=== PATIENT | female | born 1995 | race Asian ===

== ENCOUNTER 2023-05-01 22:50 | Observation (INO) ==
[2023-05-01] MEDS ORDERED: SODIUM CHLORIDE 0.9% 1000ML 1,000 ML IV SCH (23:45)
[2023-05-02 00:17] LABS: Basophils # (auto) 0.02 K/uL (0-0.2); Basophils % (auto) 0.2 %; Eosinophils # (auto) 0.24 K/uL (0-0.50); Eosinophils % (auto) 2.4 %; Hematocrit (blood only) 43.4 % (37.0-47.0); Hemoglobin 15.2 g/dl (12.0-16.0); Immature Granulocytes # (auto) 0.03 K/uL (0.01-0.20); Immature Granulocytes % (auto) 0.3 %; Lymphocytes # (auto) 2.87 K/uL (1.2-3.4); Lymphocytes % (auto) 28.3 %; Mean Corpuscular Hemoglobin 29.7 pg (25.0-34.0); Mean Corpuscular Volume 84.9 fL (80.0-100.0); Mean Platelet Volume 11.3 fL (9.4-12.4); Monocytes # (auto) 0.47 K/uL (0.11-0.59); Monocytes % (auto) 4.6 %; Neutrophils # (auto) 6.52 K/uL (1.40-6.50); Neutrophils % (auto) 64.2 %; Platelet Count 235 K/uL (130-400); RDW Coefficient of Variation 11.9 % (11.5-14.5); RDW Standard Deviation 35.8 fL (36.4-46.3); Red Blood Count 5.11 M/uL (4.20-5.40); White Blood Count 10.15 K/ul (4.8-10.8)
[2023-05-02 00:24] LABS: Salicylate 24.1 mg/dl (3.0-30)
[2023-05-02 00:26] LABS: Alanine Aminotransferase 11 U/L (7-52); Albumin Globulin Ratio 1.9 (0.9-2); Albumin Level 4.7 gm/dl (3.4-5.0); Alkaline Phosphatase 58 U/L (34-104); Anion Gap 12 (3-11); Aspartate Aminotransferase 20 U/L (13-39); BUN Creatinine Ratio 22.2 (10-20); Bilirubin,Total 0.2 mg/dl (0.2-1.0); Blood Urea Nitrogen 16 mg/dl (6-23); Calcium 9.1 mg/dl (8.6-10.3); Carbon Dioxide 24 mmol/L (21-32); Chloride 104 mmol/L (98-107); Est GFR (Non-African American) 115.6 ml/min; Globulin 2.5 gm/dl (2.5-4.0); Glucose 104 mg/dl (70-99(Fasting)); Magnesium 1.9 mg/dl (1.7-2.4); Potassium 3.2 mmol/L (3.5-5.1); Pregnancy Test, Serum Negative (Negative); Sodium 140 mmol/L (136-145); Total Protein 7.2 gm/dl (6.0-8.3)
[2023-05-02 00:38] LABS: INR 0.9 (0.9-1.1); Prothrombin Time 10.4 Seconds (9.0-12.0)
[2023-05-02] MEDS ORDERED: ONDANSETRON INJ 2 MG/ML 2 ML VIAL ONE (01:10)
[2023-05-02] MEDS ORDERED: ONDANSETRON INJ 2 MG/ML 2 ML VIAL IV STA ×3 (01:34→05:50)
--- NOTE | 2023-05-02 01:38 | Emergency Department Note ---
Impression & Plan Intentional acetaminophen overdose, Suicide attempt by drug ingestion, Mood disorder ED Provider Note NAME: TEMO ARRIOLA AGE: 27 SEX: F ARRIVES VIA: Walk-In INFORMANT: Patient ED PROVIDER(S): Darío Shook MD CHIEF COMPLAINT: Intentional Tylenol overdose PLAN: Disposition: Admit MEDICAL DECISION MAKING: The patient is a 27-year-old woman with a past medical history of PTSD/depression who presents to the emergency department via walk-in for evaluation of intentional Tylenol overdose where she reports taking 25 2050 mg tablets of Excedrin and then "a good number of extra strength Tylenol" which she later quantifies as 10 tablets. The patient reports that she took the overdose to "punish herself". He initially denies wanting to kill herself however she acknowledges that she is aware of the harm that the medications can cause. She reports feeling mild nausea but denies any vomiting, abdominal pain. She denies any recent illness including fevers, chills, cough, congestion or urinary symptoms. On my evaluation the patient is in no acute distress, afebrile with stable vital signs. Her abdomen is benign. She has no overt toxidrome. EKG without overt acute ischemia and unremarkable intervals. Chest x-ray and KUB negative for acute abnormalities per my primary review. WBC, H/H and platelets within normal limits. Chemistry without metabolic acidosis. Potassium 3.2 and electrolytes otherwise unremarkable. LFTs are unremarkable. INR is 0.9, within normal limits. UA without evidence of infection. The patient's initial acetaminophen level was 78 at 2 hours from her reported ingestion at 930. Case was discussed with the [facility] and recommend following 4-hour acetaminophen level and aspirin level. However, given the concern that the patient is not reliable in terms of whether she had a single ingestion at 930 versus over a period of time, agree with plan proceed with treatment with NAC while awaiting 4-hour level but will complete 21-hour regimen. [facility] for [facility] for medical clearance and subsequent referral for psychiatric treatment. Triage Nursing notes reviewed and agree them. Prior/outside medical records reviewed Vital Signs: reviewed Differential diagnosis: Mood disorder, infection, hypoglycemia, electrolyte abnormalities, cardiac sources, intracerebral event, toxicologic, trauma, neurologic, as well as other pathologies. ER treatment provided: See below. Diagnostics interpreted by me: ECG: Normal sinus rhythm, 84 bpm, no ectopy, no overt ST elevation or depression, QTc 451, QRS 74. Cardiac Monitoring: An order for continuous cardiac monitoring was placed and demonstrated Normal sinus rhythm, 84 bpm, no ectopy. Laboratory studies: See below Imaging studies: See below Consultation(s): PCC Case was discussed with Dr. Brown, [facility] hospitalist who will evaluate the patient for admission. HPI: The patient is a 27-year-old woman with a past medical history of PTSD/depression who presents to the emergency department via walk-in for evaluation of intentional Tylenol overdose where she reports taking 25 2050 mg tablets of Excedrin and then "a good number of extra strength Tylenol" which she later quantifies as 10 tablets. The patient reports that she took the overdose to "punish herself". He initially denies wanting to kill herself however she acknowledges that she is aware of the harm that the medications can cause. She reports feeling mild nausea but denies any vomiting, abdominal pain. She denies any recent illness including fevers, chills, cough, congestion or urinary symptoms. ROS: See above HPI for pertinent positives & negatives. A total of 10 systems reviewed and were otherwise negative. VITALS:See Below PHYSICAL EXAMINATION: GENERAL: Awake, alert, melancholy-appearing, in no distress HENT: Normocephalic, atraumatic. Oropharynx unremarkable. EYES: Normal conjunctiva. Sclera non-icteric. NECK: Supple. No nuchal rigidity. FROM. No JVD. RESPIRATORY: Clear to auscultation. CARDIAC: Regular rate, normal rhythm. Extremities warm and well perfused. Pulses equal. ABDOMEN: Soft, non-distended. No tenderness to palpation. No rebound or guarding. No masses. RECTAL: Deferred. MUSCULOSKELETAL: Chest examination reveals no tenderness. The back is symmetrical on inspection without obvious abnormality. There is no CVA tenderness to palpation. No joint edema. LOWER EXTREMITIES: Calves are equal size bilaterally and non-tender. No edema. No discoloration. NEURO: Normal sensorium. No sensory or motor deficits noted. DTRs wnl. No clonus. SKIN: No rash or jaundice noted. PSYCH: Melancholy appearing. Suicidal ideation. Depressed. ED COURSE: Critical Care: I have personally spent greater than 45 minutes of critical care time in the direct management of this patient. This includes bedside care, interpretation of diagnostic studies, and testing, discussion with consultants, patient, and family members, and other required patient management activities. This 45 minutes is in excess of all separately billable procedures. Darío Shook MD Past Med/Surg History Medical History Psychological disorder Unspecified hearing loss, unspecified ear Surgical History Stout teeth extracted Family History Unknown No problems noted. Social History Smoking Status: Never smoker Do You Dip or Chew Tobacco: No; Hx Alcohol Use: No Hx Substance Use: No Preferred Language: Arabic Communication Ability: Effective Director Of Acquisitions Required: No Beliefs That Will Affect Care: None Feels Safe at Home: Yes Gender Identity: Nonbinary Assistive Devices: Glasses Allergies Allergies Allergy/AdvReac Type Severity Reaction Status Date / Time azithromycin Allergy Intermediate Rash Verified 05/01/23 23:45 [From Zithromax Z-Layton] Home Meds Home Medications Medication Instructions Recorded Confirmed dexmethylphenidate 10 mg 10 mg PO DAILY PRN Other 10/24/22 05/01/23 capsule,extended release [id number] (Focalin XR) escitalopram oxalate 20 mg tablet 20 mg PO DAILY 10/24/22 05/01/23 (Lexapro) lamotrigine 150 mg tablet 150 mg PO DAILY 10/24/22 05/01/23 (Lamictal) medroxyprogesterone 104 mg/0.65 mL 104 mg subcut Q90D 10/24/22 05/01/23 subcutaneous syringe (Depo-SubQ provera 104) omeprazole 20 mg capsule,delayed 20 mg PO DAILY 10/24/22 05/01/23 release prazosin 1 mg capsule (Minipress) 1 mg PO QPM 10/24/22 05/01/23 trazodone 50 mg tablet 50 mg PO HS 10/24/22 05/01/23 levocetirizine 5 mg tablet 5 mg PO QPM 05/01/23 05/01/23 Previous Rx's Medication Instructions Recorded azelastine 137 mcg (0.1 %) nasal 2 spray intranasal DAILY #30 mL 03/13/23 spray aerosol Results & Data (ED) Vital Signs Vital Signs - 24 hr 05/01/23 22:55 05/01/23 23:30 05/01/23 23:05 Temperature 36.8 C Temperature Source Temporal Artery Scan Pulse Rate 93 H 68 Pulse Rate [Apical] 74 Pulse Rhythm [Apical] Regular Pulse Strength [Apical] Normal Respiratory Rate 20 18 Respiratory Effort / Characteristics Non-Labored Respiratory Depth Normal Respiratory Pattern Regular Blood Pressure 115/73 Blood Pressure [Left Arm] 107/73 Blood Pressure Mean 87 Blood Pressure Mean [Left Arm] 84 Blood Pressure Position [Left Arm] Lying Pulse Oximetry 98 96 98 Oxygen Delivery Method Room Air Room Air Room Air Sepsis Recent Fever Within 48 Hours No Sepsis New/Unexplained Change in Mental Status N/A Sepsis Action Taken by Nursing No Action Required 05/02/23 01:19 Temperature Temperature Source Pulse Rate 70 Pulse Rate [Apical] Pulse Rhythm [Apical] Pulse Strength [Apical] Respiratory Rate Respiratory Effort / Characteristics Respiratory Depth Respiratory Pattern Blood Pressure Blood Pressure [Left Arm] Blood Pressure Mean Blood Pressure Mean [Left Arm] Blood Pressure Position [Left Arm] Pulse Oximetry Oxygen Delivery Method Sepsis Recent Fever Within 48 Hours Sepsis New/Unexplained Change in Mental Status Sepsis Action Taken by Nursing Laboratory Data Attestation: I reviewed the patient's lab results. 05/01/23 23:20 05/01/23 23:20 Lab Results 05/01/23 05/01/23 05/01/23 Range/Units 23:20 23:20 23:20 WBC (4.8-10.8) K/ul RBC (4.20-5.40) M/uL Hgb (12.0-16.0) g/dl Hct (37.0-47.0) % MCV (80.0-100.0) fL MCH (25.0-34.0) pg MCHC (32.0-36.0) g/dL RDW Std Deviation (36.4-46.3) fL RDW Coeff of Emma (11.5-14.5) % Plt Count (130-400) K/uL MPV (9.4-12.4) fL Immature Gran % (Auto) % Neut % (Auto) % Lymph % (Auto) % [place] % (Auto) % Eos % (Auto) % Baso % (Auto) % Neut # (Auto) (1.40-6.50) K/uL Lymph # (Auto) (1.2-3.4) K/uL [place] # (Auto) (0.11-0.59) K/uL Eos # (Auto) (0-0.50) K/uL Baso # (Auto) (0-0.2) K/uL Immature Gran # (Auto) (0.01-0.20) K/uL PT 10.4 (9.0-12.0) Seconds INR 0.9 (0.9-1.1) Sodium 140 (136-145) mmol/L Potassium 3.2 L (3.5-5.1) mmol/L Chloride 104 (98-107) mmol/L Carbon Dioxide 24 (21-32) mmol/L Anion Gap 12 H (3-11) BUN 16 (6-23) mg/dl Creatinine 0.72 (0.6-1.2) mg/dl Est Cr Clr Drug Dosing Not Reportable Est GFR ( Amer) 134.0 ml/min Est GFR (Non-Af Amer) 115.6 ml/min BUN/Creatinine Ratio 22.2 H (10-20) Glucose 104 H (70-99(Fasting)) mg/dl Calcium 9.1 (8.6-10.3) mg/dl Magnesium 1.9 (1.7-2.4) mg/dl Total Bilirubin 0.2 (0.2-1.0) mg/dl AST 20 (13-39) U/L ALT 11 (7-52) U/L Alkaline Phosphatase 58 (34-104) U/L Total Protein 7.2 (6.0-8.3) gm/dl Albumin 4.7 (3.4-5.0) gm/dl Globulin 2.5 (2.5-4.0) gm/dl Albumin/Globulin Ratio 1.9 (0.9-2) HCG, Qual (Negative) Urine Color Urine Appearance (Clear) Urine pH (4.5-7.5) Ur Specific [place] (1.000-1.030) Urine Protein (Negative) Urine Glucose (UA) (Negative) Urine Ketones (Negative) Urine Blood (Negative) Urine Nitrite (Negative) Urine Bilirubin (Negative) Urine Urobilinogen (Negative) Ur Leukocyte Esterase (Negative) Salicylates 24.1 (3.0-30) mg/dl Urine Opiates Screen (Neg) Ur Methadone, Qual (Neg) Acetaminophen 78 H (10-30) ug/ml Urine Barbiturates (Neg) Ur Phencyclidine (PCP) (Neg) U Amphetamin/Meth Scrn (Neg) MDMA (Ecstasy) Screen (Neg) U Benzodiazepines Scrn (Neg) Ur Cocaine Metabolite (Neg) U Marijuana (THC) Screen (Neg) Ethyl Alcohol mg/dL (<10.0) mg/dl 05/01/23 05/01/23 05/01/23 Range/Units 23:20 23:20 23:20 WBC 10.15 (4.8-10.8) K/ul RBC 5.11 (4.20-5.40) M/uL Hgb 15.2 (12.0-16.0) g/dl Hct 43.4 (37.0-47.0) % MCV 84.9 (80.0-100.0) fL MCH 29.7 (25.0-34.0) pg MCHC 35.0 (32.0-36.0) g/dL RDW Std Deviation 35.8 L (36.4-46.3) fL RDW Coeff of Emma 11.9 (11.5-14.5) % Plt Count 235 (130-400) K/uL MPV 11.3 (9.4-12.4) fL Immature Gran % (Auto) 0.3 % Neut % (Auto) 64.2 % Lymph % (Auto) 28.3 % [place] % (Auto) 4.6 % Eos % (Auto) 2.4 % Baso % (Auto) 0.2 % Neut # (Auto) 6.52 H (1.40-6.50) K/uL Lymph # (Auto) 2.87 (1.2-3.4) K/uL [place] # (Auto) 0.47 (0.11-0.59) K/uL Eos # (Auto) 0.24 (0-0.50) K/uL Baso # (Auto) 0.02 (0-0.2) K/uL Immature Gran # (Auto) 0.03 (0.01-0.20) K/uL PT (9.0-12.0) Seconds INR (0.9-1.1) Sodium (136-145) mmol/L Potassium (3.5-5.1) mmol/L Chloride (98-107) mmol/L Carbon Dioxide (21-32) mmol/L Anion Gap (3-11) BUN (6-23) mg/dl Creatinine (0.6-1.2) mg/dl Est Cr Clr Drug Dosing Est GFR ( Amer) ml/min Est GFR (Non-Af Amer) ml/min BUN/Creatinine Ratio (10-20) Glucose (70-99(Fasting)) mg/dl Calcium (8.6-10.3) mg/dl Magnesium (1.7-2.4) mg/dl Total Bilirubin (0.2-1.0) mg/dl AST (13-39) U/L ALT (7-52) U/L Alkaline Phosphatase (34-104) U/L Total Protein (6.0-8.3) gm/dl Albumin (3.4-5.0) gm/dl Globulin (2.5-4.0) gm/dl Albumin/Globulin Ratio (0.9-2) HCG, Qual Negative (Negative) Urine Color Urine Appearance (Clear) Urine pH (4.5-7.5) Ur Specific [place] (1.000-1.030) Urine Protein (Negative) Urine Glucose (UA) (Negative) Urine Ketones (Negative) Urine Blood (Negative) Urine Nitrite (Negative) Urine Bilirubin (Negative) Urine Urobilinogen (Negative) Ur Leukocyte Esterase (Negative) Salicylates (3.0-30) mg/dl Urine Opiates Screen (Neg) Ur Methadone, Qual (Neg) Acetaminophen (10-30) ug/ml Urine Barbiturates (Neg) Ur Phencyclidine (PCP) (Neg) U Amphetamin/Meth Scrn (Neg) MDMA (Ecstasy) Screen (Neg) U Benzodiazepines Scrn (Neg) Ur Cocaine Metabolite (Neg) U Marijuana (THC) Screen (Neg) Ethyl Alcohol mg/dL < 10.0 (<10.0) mg/dl 05/02/23 05/02/23 05/02/23 Range/Units 01:23 02:01 02:01 WBC (4.8-10.8) K/ul RBC (4.20-5.40) M/uL Hgb (12.0-16.0) g/dl Hct (37.0-47.0) % MCV (80.0-100.0) fL MCH (25.0-34.0) pg MCHC (32.0-36.0) g/dL RDW Std Deviation (36.4-46.3) fL RDW Coeff of Emma (11.5-14.5) % Plt Count (130-400) K/uL MPV (9.4-12.4) fL Immature Gran % (Auto) % Neut % (Auto) % Lymph % (Auto) % [place] % (Auto) % Eos % (Auto) % Baso % (Auto) % Neut # (Auto) (1.40-6.50) K/uL Lymph # (Auto) (1.2-3.4) K/uL [place] # (Auto) (0.11-0.59) K/uL Eos # (Auto) (0-0.50) K/uL Baso # (Auto) (0-0.2) K/uL Immature Gran # (Auto) (0.01-0.20) K/uL PT (9.0-12.0) Seconds INR (0.9-1.1) Sodium (136-145) mmol/L Potassium (3.5-5.1) mmol/L Chloride (98-107) mmol/L Carbon Dioxide (21-32) mmol/L Anion Gap (3-11) BUN (6-23) mg/dl Creatinine (0.6-1.2) mg/dl Est Cr Clr Drug Dosing Est GFR ( Amer) ml/min Est GFR (Non-Af Amer) ml/min BUN/Creatinine Ratio (10-20) Glucose (70-99(Fasting)) mg/dl Calcium (8.6-10.3) mg/dl Magnesium (1.7-2.4) mg/dl Total Bilirubin (0.2-1.0) mg/dl AST (13-39) U/L ALT (7-52) U/L Alkaline Phosphatase (34-104) U/L Total Protein (6.0-8.3) gm/dl Albumin (3.4-5.0) gm/dl Globulin (2.5-4.0) gm/dl Albumin/Globulin Ratio (0.9-2) HCG, Qual (Negative) Urine Color Yellow Urine Appearance Clear (Clear) Urine pH 8.0 H (4.5-7.5) Ur Specific [place] 1.012 (1.000-1.030) Urine Protein Negative (Negative) Urine Glucose (UA) Negative (Negative) Urine Ketones 1+ H (Negative) Urine Blood Negative (Negative) Urine Nitrite Negative (Negative) Urine Bilirubin Negative (Negative) Urine Urobilinogen Negative (Negative) Ur Leukocyte Esterase Negative (Negative) Salicylates 23.0 (3.0-30) mg/dl Urine Opiates Screen Neg (Neg) Ur Methadone, Qual Neg (Neg) Acetaminophen 138 H (10-30) ug/ml Urine Barbiturates Neg (Neg) Ur Phencyclidine (PCP) Neg (Neg) U Amphetamin/Meth Scrn Neg (Neg) MDMA (Ecstasy) Screen Neg (Neg) U Benzodiazepines Scrn Neg (Neg) Ur Cocaine Metabolite Neg (Neg) U Marijuana (THC) Screen Neg (Neg) Ethyl Alcohol mg/dL (<10.0) mg/dl Administered Medications Discontinued Medications Acetylcysteine (Acetylcysteine Iv 21 Hr Regimen (>40kg)) 1 each IV NOW STA; Protocol Stop: 05/02/23 01:41 Last Admin: 05/02/23 03:31 Dose: Not Given Documented By: ANU Azelastine HCl (Azelastine Hcl 0.1% Nasal 200 Sprays/27,400 Mcg Btl) 2 sprays CASPER DAILY NICOLE Stop: 06/01/23 08:59 Last Admin: 05/02/23 09:46 Dose: 2 sprays Documented By: DARLENE Escitalopram Oxalate (Escitalopram Oxalate 20 Mg Tab) 20 mg PO DAILY NICOLE Stop: 06/01/23 08:59 Last Admin: 05/02/23 09:46 Dose: 20 mg Documented By: DARLENE Sodium Chloride (Nss 1000ml) 1,000 mls @ 999 mls/hr IV .Q1H1M NICOLE Stop: 05/02/23 00:45 Last Infusion: 05/02/23 02:12 Dose: 0 mls/hr Documented By: Admin: 05/02/23 01:00 Dose: 999 mls/hr Documented By: MALLORY Acetylcysteine 4,910 mg/ (Dextrose) 1,024.55 mls @ 62.5 mls/hr IV ONCE ONE Stop: 05/02/23 23:04 Last Admin: 05/02/23 07:53 Dose: Not Given Documented By: DARLENE Acetylcysteine 2,460 mg/ (Dextrose) 512.3 mls @ 125 mls/hr IV ONCE ONE Stop: 05/02/23 06:46 Last Infusion: 05/02/23 07:53 Dose: 0 mls/hr Documented By: Admin: 05/02/23 04:48 Dose: 125 mls/hr Documented By: ANU Acetylcysteine 7,370 mg/ (Dextrose) 236.85 mls @ 200 mls/hr IV ONCE ONE Stop: 05/02/23 02:51 Last Infusion: 05/02/23 04:55 Dose: 0 mls/hr Documented By: Infusion: 05/02/23 03:52 Dose: 200 mls/hr Documented By: Infusion: 05/02/23 02:58 Dose: 0 mls/hr Documented By: Admin: 05/02/23 02:24 Dose: 200 mls/hr Documented By: REJI Potassium Chloride (K Berto / Wtr) 10 meq in 100 mls @ 100 mls/hr IV Q1H NICOLE Stop: 05/02/23 06:59 Last Infusion: 05/02/23 07:18 Dose: 0 mls/hr Documented By: Admin: 05/02/23 06:30 Dose: 100 mls/hr Documented By: Infusion: 05/02/23 06:30 Dose: 100 mls/hr Documented By: Admin: 05/02/23 06:05 Dose: 100 mls/hr Documented By: Infusion: 05/02/23 06:04 Dose: 100 mls/hr Documented By: Admin: 05/02/23 05:04 Dose: 100 mls/hr Documented By: Infusion: 05/02/23 04:55 Dose: 0 mls/hr Documented By: Admin: 05/02/23 03:43 Dose: 100 mls/hr Documented By: ANU Lactated Ringer's (Lr) 1,000 mls @ 60 mls/hr IV .[id number] ONE Stop: 05/02/23 19:02 Last Admin: 05/02/23 03:43 Dose: 60 mls/hr Documented By: ANU Promethazine HCl 6.25 mg/ (Sodium Chloride) 50.25 mls @ 201 mls/hr IV Q6H PRN PRN Reason: Nausea And Vomiting Stop: 06/01/23 02:22 Last Infusion: 05/02/23 03:30 Dose: 0 mls/hr Documented By: Admin: 05/02/23 02:58 Dose: 201 mls/hr Documented By: REJI Pantoprazole Sodium 40 mg/ (Syringe) 10 mls @ 5 mls/min IV NOW ONE Stop: 05/02/23 02:25 Last Admin: 05/02/23 03:42 Dose: 5 mls/min Documented By: ANU Promethazine HCl (Phenergan) 6.25 mg in 50.25 mls @ 201 mls/hr IV NOW STA Stop: 05/02/23 04:16 Last Infusion: 05/02/23 05:23 Dose: 0 mls/hr Documented By: Admin: 05/02/23 04:47 Dose: 201 mls/hr Documented By: ANU Lamotrigine (Lamotrigine 100 Mg Tab) 150 mg PO DAILY NICOLE Stop: 06/01/23 08:59 Last Admin: 05/02/23 09:46 Dose: 150 mg Documented By: DARLENE Ondansetron HCl (Ondansetron Inj 2 Mg/Ml 2 Ml Vial) Confirm Administered Dose 4 mg .ROUTE .STK-MED ONE Stop: 05/02/23 01:11 Last Admin: 05/02/23 01:00 Dose: 4 mg Documented By: MALLORY Ondansetron HCl (Ondansetron Inj 2 Mg/Ml 2 Ml Vial) 4 mg IV NOW STA Stop: 05/02/23 01:35 Last Admin: 05/02/23 01:35 Dose: Not Given Documented By: MALLORY Ondansetron HCl (Ondansetron Inj 2 Mg/Ml 2 Ml Vial) 4 mg IV NOW STA Stop: 05/02/23 01:42 Last Admin: 05/02/23 02:35 Dose: Not Given Documented By: REJI Ondansetron HCl (Ondansetron Inj 2 Mg/Ml 2 Ml Vial) 4 mg IV NOW STA Stop: 05/02/23 05:51 Last Admin: 05/02/23 06:05 Dose: 4 mg Documented By: ANU Pantoprazole Sodium (Pantoprazole 40 Mg Tab) 40 mg PO DAILY NICOLE Stop: 06/01/23 08:59 Last Admin: 05/02/23 09:46 Dose: 40 mg Documented By: DARLENE Promethazine HCl (Promethazine 6.25 Mg/50.25 Ml Nss) Confirm Administered Dose 6.25 mg IV .STK-MED ONE Stop: 05/02/23 02:51 Last Admin: 05/02/23 03:13 Dose: Not Given Documented By: REJI Imaging Data Radiologist's Impression: Chest X-Ray 05/02/23 00:49 XR chest 1V portable CLINICAL HISTORY: overdose, nausea COMPARISON STUDY: No previous studies for comparison. FINDINGS: Lung volumes are normal. Lungs are clear. There is no pneumothorax or pleural effusion. Cardiac size is normal. Mediastinal contours are normal. There is no evidence for pulmonary edema. IMPRESSION: No acute cardiopulmonary findings. ACT 112: Negative or not required by law. Electronically signed by: Dave Blankenship M.D. 05/02/2023 6:39 AM KUB X-Ray 05/02/23 00:49 KUB CLINICAL HISTORY: overdose, nausea COMPARISON STUDY: None. FINDINGS: Bowel gas pattern is normal. Amount of stool is within normal limits. No urinary calculi are identified. Visualized skeletal structures are unremarkable. IMPRESSION: No evidence for a bowel obstruction. ACT 112: Negative or not required by law. Electronically signed by: Dave Blankenship M.D. 05/02/2023 6:40 AM Discharge Plan Visit Data Chief Complaint: Mental Health Evaluation Stated Complaint: VOMITING,FEELING SICK ED Provider: Darío Shook Discharge Problem: Intentional acetaminophen overdose, Suicide attempt by drug ingestion, Mood disorder Patient Disposition: Admitted As Inpatient Discharge Instructions Interventions: ED Discharge Assessment Last Done: 05/02/23 07:25
[2023-05-02] MEDS ORDERED: AcetylCYSTEINE IV 21 HR REGIMEN (>40KG) IV STA (01:40)
[2023-05-02] MEDS ORDERED: ACETYLCYSTEINE IV ONE ×3 (01:40→06:41)
[2023-05-02] MEDS ORDERED: DEXTROSE 5% IV ONE ×3 (01:40→06:41)
[2023-05-02 02:08] LABS: Appearance Urine Clear (Clear); Bilirubin Urine Negative (Negative); Blood Urine Negative (Negative); Color Urine Yellow; Glucose Urine UA Negative (Negative); Ketones Urine 1+ (Negative); Leukocyte Esterase Urine Negative (Negative); Nitrite Urine Negative (Negative); Protein Urine Negative (Negative); Specific Gravity Urine 1.012 (1.000-1.030); Urobilinogen Urine Negative (Negative)
--- NOTE | 2023-05-02 02:19 | History & Physical Report ---
Date of Service May 02, 2023 Assessment & Plan (1) Suicide attempt by drug ingestion: Plan: Tylenol and Excedrin hx anxiety/mood disorder/PTSD, ADD Hypokalemia secondary to emesis past alcohol abuse Medical telemetry Follow toxicology recommendations Acetadote protocol for now Replace potassium Psych consult re: suicidality Suicide precautions until patient cleared by psychiatry. DVT prophylaxis. SCDs Re: Potential GI bleed following Excedrin ingestion Full code Text document was generated using [employer] voice recognition software. It may contain grammatical or spelling errors. Kindly contact undersigned for clarification of any documentation item in question. Addendum 05/02, 650 a.m. Follow-up discussion with Poison control provider ([phone]). Acetadote protocol not recommended with 4-hour acetaminophen level of less than 150 mcg/mL per patient earlier. ED provider started Acetadote protocol because patient's story seemed unreliable to provider as far as time of drug ingestion. He had concerns that patient was taking Tylenol at different times prior to coming to the emergency room which would make nomogram based treatment decisions unreliable. Patient adamantly denies taking Tylenol at different times prior to ER consultation. Patient account of taking all the Excedrin and Tylenol tablets at the same time around 10 PM last night seemed reliable to me. Will stop Acetadote protocol as per Poison control recommendations. History of Present Illness Chief Complaint: Drug ingestion Primary Care Provider: PCP, Liana (Former PCP is Dr. Rizwana Marie. Patient does not intend to follow-up with her because patient will be leaving town to go home to [facility].) History obtained from patient, family, and records. Medical history significant for anxiety/mood disorder/PTSD, ADD, eating disorder as per records, past alcohol abuse. Patient took 24 tablets of Excedrin 250 mg and 13 tablets of Tylenol 500 mg, all tablets at the same time around 10 PM last night. Admits to stress and self-harm intent. Subsequent achy abdominal discomfort, nausea, and bilious emesis. Patient denies headache, chest pain, SOB. IV Acetadote protocol initiated at the ER. Medical History as above Surgical History : Dental surgery Family History : Unknown as patient was adopted Personal/Social history : Non-smoker, past alcohol abuse, currently unemployed Allergies Allergy/AdvReac Type Severity Reaction Status Date / Time azithromycin Allergy Intermediate Rash Verified 05/01/23 23:45 [From [employer] Z-Layton] Home Medications Medication Instructions Recorded Confirmed Type dexmethylphenidate 10 mg 10 mg PO DAILY PRN Other 10/24/22 05/01/23 History capsule,extended release [id number] (Focalin XR) escitalopram oxalate 20 mg tablet 20 mg PO DAILY 10/24/22 05/01/23 History (Lexapro) lamotrigine 150 mg tablet 150 mg PO DAILY 10/24/22 05/01/23 History (Lamictal) medroxyprogesterone 104 mg/0.65 mL 104 mg subcut Q90D 10/24/22 05/01/23 History subcutaneous syringe (Depo-SubQ provera 104) omeprazole 20 mg capsule,delayed 20 mg PO DAILY 10/24/22 05/01/23 History release prazosin 1 mg capsule (Minipress) 1 mg PO QPM 10/24/22 05/01/23 History trazodone 50 mg tablet 50 mg PO HS 10/24/22 05/01/23 History azelastine 137 mcg (0.1 %) nasal 2 spray intranasal DAILY #30 mL 03/13/23 05/01/23 Rx spray aerosol levocetirizine 5 mg tablet 5 mg PO QPM 05/01/23 05/01/23 History Past Med/Surg History Medical History Psychological disorder Unspecified hearing loss, unspecified ear Surgical History [place] teeth extracted Family History Unknown No problems noted. Social History Smoking Status: Never smoker Do You Dip or Chew Tobacco: No; Hx Alcohol Use: Yes Hx Substance Use: Yes Non-Prescribed Medications: Marijuana Preferred Language: Georgian Feels Safe at Home: Hesitant to Answer Review of Systems Review of Systems: As per HPI, all other systems reviewed and negative Physical Exam Physical Exam: GENERAL: Slightly uncomfortable, no respiratory distress SKIN: Normal color, warm HEENT: [place] palpebral conjunctivae, no ptosis, dry buccal mucosa NECK : Supple, no tenderness CHEST : CTA, no tenderness HEART : RRR, no obvious murmurs ABDOMEN: Some distention, minimal epigastric tenderness EXTREMITIES : No LE swelling/tenderness, no other conspicuous deformities noted NEUROLOGIC : Coherent, no facial asymmetry, no other gross focality Results & Data Results & Data Vital Signs (Past 12 Hours) Vital Signs Temp Pulse Pulse Resp BP BP Pulse Ox 05/02/23 01:19 70 05/01/23 23:05 68 98 05/01/23 23:30 74 18 107/73 96 05/01/23 22:55 36.8 C 93 H 20 115/73 98 O2 Del Method 05/02/23 01:19 05/01/23 23:05 Room Air 05/01/23 23:30 Room Air 05/01/23 22:55 Room Air Laboratory Results Laboratory Results WBC 10.15 K/ul (4.8-10.8) 05/01/23 23:20 RBC 5.11 M/uL (4.20-5.40) 05/01/23 23:20 Hgb 15.2 g/dl (12.0-16.0) 05/01/23 23:20 Hct 43.4 % (37.0-47.0) 05/01/23 23:20 MCV 84.9 fL (80.0-100.0) 05/01/23 23:20 MCH 29.7 pg (25.0-34.0) 05/01/23 23:20 MCHC 35.0 g/dL (32.0-36.0) 05/01/23 23:20 RDW Std Deviation 35.8 fL (36.4-46.3) L 05/01/23 23:20 RDW Coeff of Emma 11.9 % (11.5-14.5) 05/01/23 23:20 Plt Count 235 K/uL (130-400) 05/01/23 23:20 MPV 11.3 fL (9.4-12.4) 05/01/23 23:20 Immature Gran % (Auto) 0.3 % 05/01/23 23:20 Neut % (Auto) 64.2 % 05/01/23 23:20 Lymph % (Auto) 28.3 % 05/01/23 23:20 [place] % (Auto) 4.6 % 05/01/23 23:20 Eos % (Auto) 2.4 % 05/01/23 23:20 Baso % (Auto) 0.2 % 05/01/23 23:20 Neut # (Auto) 6.52 K/uL (1.40-6.50) H 05/01/23 23:20 Lymph # (Auto) 2.87 K/uL (1.2-3.4) 05/01/23 23:20 [place] # (Auto) 0.47 K/uL (0.11-0.59) 05/01/23 23:20 Eos # (Auto) 0.24 K/uL (0-0.50) 05/01/23 23:20 Baso # (Auto) 0.02 K/uL (0-0.2) 05/01/23 23:20 Immature Gran # (Auto) 0.03 K/uL (0.01-0.20) 05/01/23 23:20 PT 10.4 Seconds (9.0-12.0) 05/01/23 23:20 INR 0.9 (0.9-1.1) 05/01/23 23:20 Sodium 140 mmol/L (136-145) 05/01/23 23:20 Potassium 3.2 mmol/L (3.5-5.1) L 05/01/23 23:20 Chloride 104 mmol/L (98-107) 05/01/23 23:20 Carbon Dioxide 24 mmol/L (21-32) 05/01/23 23:20 Anion Gap 12 (3-11) H 05/01/23 23:20 BUN 16 mg/dl (6-23) 05/01/23 23:20 Creatinine 0.72 mg/dl (0.6-1.2) 05/01/23 23:20 Est Cr Clr Drug Dosing Not Reportable 05/01/23 23:20 Est GFR ( Amer) 134.0 ml/min 05/01/23 23:20 Est GFR (Non-Af Amer) 115.6 ml/min 05/01/23 23:20 BUN/Creatinine Ratio 22.2 (10-20) H 05/01/23 23:20 Glucose 104 mg/dl (70-99(Fasting)) H 05/01/23 23:20 Calcium 9.1 mg/dl (8.6-10.3) 05/01/23 23:20 Magnesium 1.9 mg/dl (1.7-2.4) 05/01/23 23:20 Total Bilirubin 0.2 mg/dl (0.2-1.0) 05/01/23 23:20 AST 20 U/L (13-39) 05/01/23 23:20 ALT 11 U/L (7-52) 05/01/23 23:20 Alkaline Phosphatase 58 U/L (34-104) 05/01/23 23:20 Total Protein 7.2 gm/dl (6.0-8.3) 05/01/23 23:20 Albumin 4.7 gm/dl (3.4-5.0) 05/01/23 23:20 Globulin 2.5 gm/dl (2.5-4.0) 05/01/23 23:20 Albumin/Globulin Ratio 1.9 (0.9-2) 05/01/23 23:20 HCG, Qual Negative (Negative) 05/01/23 23:20 Urine Color Yellow 05/02/23 02:01 Urine Appearance Clear (Clear) 05/02/23 02:01 Urine pH 8.0 (4.5-7.5) H 05/02/23 02:01 Ur Specific [place] 1.012 (1.000-1.030) 05/02/23 02:01 Urine Protein Negative (Negative) 05/02/23 02:01 Urine Glucose (UA) Negative (Negative) 05/02/23 02:01 Urine Ketones 1+ (Negative) H 05/02/23 02:01 Urine Blood Negative (Negative) 05/02/23 02:01 Urine Nitrite Negative (Negative) 05/02/23 02:01 Urine Bilirubin Negative (Negative) 05/02/23 02:01 Urine Urobilinogen Negative (Negative) 05/02/23 02:01 Ur Leukocyte Esterase Negative (Negative) 05/02/23 02:01 Salicylates 23.0 mg/dl (3.0-30) 05/02/23 01:23 Acetaminophen 138 ug/ml (10-30) H 05/02/23 01:23 Ethyl Alcohol mg/dL < 10.0 mg/dl (<10.0) 05/01/23 23:20 Diagnostic Findings Chest x-ray as per my interpretation no infiltrate EKG as per my interpretation : Rate 85, NSR, normal axis, T wave abnormalities lateral leads, QTc 450
[2023-05-02] MEDS ORDERED: LACTATED RINGER'S 1,000 ML IV ONE (02:23)
[2023-05-02] MEDS ORDERED: oxyCODONE HCL IR 5 MG TAB (IMMEDIATE RELEASE) PO PRN (02:23)
[2023-05-02] MEDS ORDERED: PROMETHAZINE HCL 6.25 MG in SODIUM CHLORIDE 0.9% 50 ML IV PRN (02:23)
[2023-05-02] MEDS ORDERED: hydrOXYzine HCl 10 MG TAB PO PRN (02:23)
[2023-05-02] MEDS ORDERED: PANTOprazole 40 MG in SYRINGE 0 ML IV ONE (02:24)
[2023-05-02 02:40] LABS: Amphetamines+Metham, Urine Neg (Neg); Barbiturates, Urine Neg (Neg); Benzodiazepine, Urine Neg (Neg); Cocaine, Urine Neg (Neg); MDMA (Ecstacy), Urine Neg (Neg); Methadone, Urine Neg (Neg); Opiate, Urine Neg (Neg); Phencyclidine, Urine Neg (Neg)
[2023-05-02] MEDS ORDERED: PROMETHAZINE 6.25 MG/50.25 ML NSS IV ONE (02:50)
[2023-05-02] MEDS: POTASSIUM CHLORIDE / WTR 10 MEQ/100 ML PLCT IV SCH ×4 (03:43→06:30)
[2023-05-02] MEDS ORDERED: PROMETHAZINE HCL 6.25 MG in SODIUM CHLORIDE 0.9% 50 ML IV STA (04:02)
[2023-05-02] MEDS ORDERED: PROMETHAZINE 6.25 MG/50.25 ML BAG IV STA (04:02)
[2023-05-02] MEDS ORDERED: PROMETHAZINE HCL 12.5 MG in SODIUM CHLORIDE 0.9% 50 ML IV PRN (05:51)
--- NOTE | 2023-05-02 06:40 | XRay Report ---
XR chest 1V portable CLINICAL HISTORY: overdose, nausea COMPARISON STUDY: No previous studies for comparison. FINDINGS: Lung volumes are normal. Lungs are clear. There is no pneumothorax or pleural effusion. Car diac size is normal. Mediastinal contours are normal. There is no evidence for pulmonary edema. IMPRESSION: No acute cardiopulmonary findings. ACT 112: Negative or not required by law. Electronically signed by: Dave Blankenship M.D. 05/02/2023 6:39 AM
--- NOTE | 2023-05-02 06:41 | XRay Report ---
KUB CLINICAL HISTORY: overdose, nausea COMPARISON STUDY: None. FINDINGS: Bowel gas pattern is normal. Amount of stool is within normal limits. No urinary calculi ar e identified. Visualized skeletal structures are unremarkable. IMPRESSION: No evidence for a bowel obstruction. ACT 112: Negative or not required by law. Electronically signed by: Dave Blankenship M.D. 05/02/2023 6:40 AM
[2023-05-02 07:53] LABS: Hematocrit (blood only) 40.8 % (37.0-47.0); Hemoglobin 14.8 g/dl (12.0-16.0); Mean Corpuscular Hemoglobin 30.1 pg (25.0-34.0); Mean Corpuscular Hgb Conc 36.3 g/dL (32.0-36.0); Mean Corpuscular Volume 83.1 fL (80.0-100.0); Mean Platelet Volume 10.8 fL (9.4-12.4); Platelet Count 255 K/uL (130-400); RDW Coefficient of Variation 11.6 % (11.5-14.5); RDW Standard Deviation 35.1 fL (36.4-46.3); Red Blood Count 4.91 M/uL (4.20-5.40); White Blood Count 11.61 K/ul (4.8-10.8)
[2023-05-02 08:05] LABS: Albumin Globulin Ratio 1.6 (0.9-2); Albumin Level 4.6 gm/dl (3.4-5.0); Bilirubin,Total 0.3 mg/dl (0.2-1.0); Calcium 8.2 mg/dl (8.6-10.3); Creatinine Clr Calc Pharmacy 96.9 ml/min; Est GFR (African American) 145.8 ml/min; Est GFR (Non-African American) 125.8 ml/min; Globulin 2.9 gm/dl (2.5-4.0); Potassium 3.4 mmol/L (3.5-5.1); Total Protein 7.5 gm/dl (6.0-8.3)
[2023-05-02 08:09] LABS: INR 1.1 (0.9-1.1); Prothrombin Time 11.8 Seconds (9.0-12.0)
[2023-05-02 08:20] LABS: Basophils # (auto) 0.01 K/uL (0-0.2); Basophils % (auto) 0.1 %; Immature Granulocytes # (auto) 0.04 K/uL (0.01-0.20); Immature Granulocytes % (auto) 0.3 %; Lymphocytes # (auto) 0.68 K/uL (1.2-3.4); Lymphocytes % (auto) 5.9 %; Monocytes # (auto) 0.21 K/uL (0.11-0.59); Monocytes % (auto) 1.8 %; Neutrophils # (auto) 10.67 K/uL (1.40-6.50); Neutrophils % (auto) 91.9 %
[2023-05-02] MEDS ORDERED: PANTOprazole 40 MG TAB PO SCH (09:00)
[2023-05-02] MEDS ORDERED: lamoTRIgine 100 MG TAB PO SCH (09:00)
[2023-05-02] MEDS ORDERED: ESCITALOPRAM OXALATE 20 MG TAB PO SCH (09:00)
[2023-05-02] MEDS ORDERED: AZELASTINE HCL 0.1% NASAL 200 SPRAYS/27,400 MCG BTL NAE SCH (09:00)
--- NOTE | 2023-05-02 11:55 | Communication Note ---
Date of Service: May 02, 2023 chart reviewed, case discussed with liaison, patient was sleeping when attempted to see on rounds. Patient is outpatient of STACI Corona at [facility]. SASKIA updated and office notified. psych meds currently held and on tele with 1-on-1. Although patient initially denied SA now states they researched lethal dose and intentially took OTC meds so that if attempt wasn't successful provider would not refuse to prescribe psychiatric meds. Plan was to move home at end of month when lease ends to live with mother in [place]. Some ambivalence about inpatient care given an experience in [place] in 2019 following a prazosin OD but currently willing for 201. There is a 302 petitioning statement on the chart. She is not allowed to be released AMA. Hospitalist updated.
--- NOTE | 2023-05-02 14:51 | Electrocardiogram Report ---
Test Reason : Blood Pressure : / mmHG Vent. Rate : 084 BPM Atrial Rate : 084 BPM P-R Int : 142 ms QRS Dur : 074 ms QT Int : 382 ms P-R-T Axes : 062 058 039 degrees QTc Int : 451 ms Normal sinus rhythm Possible Left atrial enlargement Nonspecific T wave abnormality Abnormal ECG No previous ECGs available Confirmed by Steven Carias ([id number]) on 05/02/2023 2:51:29 PM Referred By: REFERRED SELF Confirmed By:Steven Carias
--- NOTE | 2023-05-02 15:01 | Communication Note ---
Date of Service: May 02, 2023 Pt seen this AM. States that
--- NOTE | 2023-05-02 15:15 | Discharge Summary ---
Date of Service May 02, 2023 Admission HPI Per Admitting Provider History obtained from patient, family, and records. Medical history significant for anxiety/mood disorder/PTSD, ADD, eating disorder as per records, past alcohol abuse. Patient took 24 tablets of Excedrin 250 mg and 13 tablets of Tylenol 500 mg, all tablets at the same time around 10 PM last night. Admits to stress and self-harm intent. Subsequent achy abdominal discomfort, nausea, and bilious emesis. Patient denies headache, chest pain, SOB. IV Acetadote protocol initiated at the ER. Medical History as above Surgical History : Dental surgery Family History : Unknown as patient was adopted Personal/Social history : Non-smoker, past alcohol abuse, currently unemployed Admission Exam Per Admitting Provider GENERAL: Slightly uncomfortable, no respiratory distress SKIN: Normal color, warm HEENT: [place] palpebral conjunctivae, no ptosis, dry buccal mucosa NECK : Supple, no tenderness CHEST : CTA, no tenderness HEART : RRR, no obvious murmurs ABDOMEN: Some distention, minimal epigastric tenderness EXTREMITIES : No LE swelling/tenderness, no other conspicuous deformities noted NEUROLOGIC : Coherent, no facial asymmetry, no other gross focality Principal Diagnosis Intentional Acetaminophen Overdose Discharge Exam General: Alert, oriented. No acute distress Skin: No noted rashes or bruises Psych: mood and affect nondejected Neuro: No gross deficits HEENT: NC/AT Chest: Nontender to palpation. CV: RRR, Normal s1, s2. Resp: Breath sounds clear bilaterally, no increased effort of breathing. Abdomen: Soft, nontender, nondistended. No guarding. No organomegaly appreciated. Extremities: No edema in lower extremities bilaterally. Discharge Data Allergies Allergy/AdvReac Type Severity Reaction Status Date / Time azithromycin Allergy Intermediate Rash Verified 05/01/23 23:45 [From Zithromax Z-Latyon] Consultations 05/02/23 01:35 ED Decision to Admit Stat 05/02/23 02:23 Consult Psychiatry Routine 05/02/23 08:08 Consult Behavioral Health Liaison Routine Hospital Course (1) Suicide attempt by drug ingestion: (2) Intentional acetaminophen overdose: (3) Hypokalemia: (4) Mood disorder: (5) Anxiety: Plan Pt is a 27yoF with PMHx significant for Mood disorder, Anxiety, PTSD and ADD who was admitted after an intentional acetaminophen overdose. Intentional Acetaminophen Overdose Hx of anxiety/mood disorder/PTSD, ADD Pt notes the acetaminophen overdose was a suicide attempt Notes multiple stressors including unemployment, student loan repayment, need to move back home etc. States ingested "12,500mg" of acetaminophen. Eight hour acetaminophen trend of 78-->138-->34 Did initially receive NAC before discontinuation per Toxicology recommendations (see H&P, Poison Control recommending that NAC not required if 4 hour acetaminophen level is less than 150) Asymptomatic currently. Pt is medically cleared for further psychiatric care. Psychiatric care/treatment of this patient appreciated. Hypokalemia Replete as needed Total Time Total Time Spent Total Time Spent (In Minutes): >30 minutes Discharge Plan Discharge Items Patient Disposition: Transfer Behavioral Health Fac Reason For Visit: TYLENOL TOX Discharge Diagnosis: Intentional Acetaminophen Overdose Activity: Per Instructions section Non-emergency contact: Primary Care Provider and Psychiatrist Call non-emergency contact if: you have any medication questions and your symptoms worsen Follow-up/Referrals: Rizwana Marie MD [Primary Care Provider] - Diet: Regular Addtl Attending Provider Instructions: Pt is a 27yoF with PMHx significant for Mood disorder, Anxiety, PTSD and ADD who was admitted after an intentional acetaminophen overdose. Intentional Acetaminophen Overdose Hx of anxiety/mood disorder/PTSD, ADD Pt notes the acetaminophen overdose was a suicide attempt Notes multiple stressors including unemployment, student loan repayment, need to move back home etc. States ingested "12,500mg" of acetaminophen. Eight hour acetaminophen trend of 78-->138-->34 Did initially receive NAC before discontinuation per Toxicology recommendations (see H&P, Poison Control recommending that NAC not required if 4 hour acetaminophen level is less than 150) Asymptomatic. Pt is medically cleared for further psychiatric care. Further psychiatric care/treatment of this patient appreciated. Pending Studies at Discharge: No Stand-Alone Forms: [facility] Medications and DC Order Prescriptions: Continued azelastine 137 mcg (0.1 %) aerosol,spray 2 spray intranasal DAILY Qty: 30 3RF Rx Instructions: administer into each nostril escitalopram oxalate [Lexapro] 20 mg tablet 20 mg PO DAILY lamotrigine [Lamictal] 150 mg tablet 150 mg PO DAILY dexmethylphenidate [Focalin XR] 10 mg capsule,ER biphasic 50-50 10 mg PO DAILY MDD attention deficit PRN (Reason: Other) omeprazole 20 mg capsule,delayed release(DR/EC) 20 mg PO DAILY trazodone 50 mg tablet 50 mg PO HS prazosin [Minipress] 1 mg capsule 1 mg PO QPM Depo-SubQ provera 104 104 mg/0.65 mL syringe 104 mg subcut Q90D Rx Instructions: PER PT "HAVEN'T HAD SINCE 10/2022". levocetirizine 5 mg tablet 5 mg PO QPM Discharge Orders: Discharge Order (Routine); Ordered 05/02/23 Ordered By: Meenakshi hCeng Admission Data Admit Date/Time: 05/02/23 02:23 Attending Provider: Meenakshi Cheng Admit Provider: Bin Brown Primary Care Provider: Rizwana Marie Other Providers: Justina Miranda ; Radha Damon ; Harvey Lopes ; Bin Brown
--- NOTE | 2023-05-02 15:17 | Psychiatric Consultation ---
Date of Consultation May 02, 2023 notified patient is medically cleared and have accepted for admission to before completion of full consult. Will be deferred in favor of H&P within next 24 hrs. Psych History Allergies Allergy/AdvReac Type Severity Reaction Status Date / Time azithromycin Allergy Intermediate Rash Verified 05/01/23 23:45 [From Zithromax Z-Layton] Home Medications Medication Instructions Recorded Confirmed Type dexmethylphenidate 10 mg 10 mg PO DAILY PRN Other 10/24/22 05/01/23 History capsule,extended release [id number] (Focalin XR) escitalopram oxalate 20 mg tablet 20 mg PO DAILY 10/24/22 05/01/23 History (Lexapro) lamotrigine 150 mg tablet 150 mg PO DAILY 10/24/22 05/01/23 History (Lamictal) medroxyprogesterone 104 mg/0.65 mL 104 mg subcut Q90D 10/24/22 05/01/23 History subcutaneous syringe (Depo-SubQ provera 104) omeprazole 20 mg capsule,delayed 20 mg PO DAILY 10/24/22 05/01/23 History release prazosin 1 mg capsule (Minipress) 1 mg PO QPM 10/24/22 05/01/23 History trazodone 50 mg tablet 50 mg PO HS 10/24/22 05/01/23 History azelastine 137 mcg (0.1 %) nasal 2 spray intranasal DAILY #30 mL 03/13/23 05/01/23 Rx spray aerosol levocetirizine 5 mg tablet 5 mg PO QPM 05/01/23 05/01/23 History Patient History Medical History Psychological disorder Unspecified hearing loss, unspecified ear Surgical History [place] teeth extracted Family History Unknown No problems noted. Social History Smoking Status: Never smoker Do You Dip or Chew Tobacco: No; Hx Alcohol Use: No Hx Substance Use: No Preferred Language: Icelandic Communication Ability: Effective Director Of Cath Lab Required: No Beliefs That Will Affect Care: None Feels Safe at Home: Hesitant to Answer Physical Exam Vital Signs (Past 24 Hours): Last Vital Signs Temp 36.7 C 05/02/23 15:00 Pulse 65 05/02/23 15:00 Resp 18 05/02/23 15:00 BP 111/74 05/02/23 15:00 Pulse Ox 99 05/02/23 15:00 O2 Del Method Room Air 05/02/23 15:00 Results & Data (PSY) Medications Administered Azelastine HCl (Azelastine Hcl 0.1% Nasal 200 Sprays/27,400 Mcg Btl) 2 sprays [place] DAILY NICOLE Stop: 06/01/23 08:59 Last Admin: 05/02/23 09:46 Dose: 2 sprays Documented By: DARLENE Escitalopram Oxalate (Escitalopram Oxalate 20 Mg Tab) 20 mg PO DAILY [facility] Stop: 06/01/23 08:59 Last Admin: 05/02/23 09:46 Dose: 20 mg Documented By: DARLENE Lactated Ringer's (Lr) 1,000 mls @ 60 mls/hr IV .[id number] ONE Stop: 05/02/23 19:02 Last Admin: 05/02/23 03:43 Dose: 60 mls/hr Documented By: ANU Lamotrigine (Lamotrigine 100 Mg Tab) 150 mg PO DAILY [facility] Stop: 06/01/23 08:59 Last Admin: 05/02/23 09:46 Dose: 150 mg Documented By: DARLENE Pantoprazole Sodium (Pantoprazole 40 Mg Tab) 40 mg PO DAILY NICOLE Stop: 06/01/23 08:59 Last Admin: 05/02/23 09:46 Dose: 40 mg Documented By: DARLENE Coding Level of Care Code None Diagnoses
[2023-05-02] MEDS ORDERED: PRAZOSIN HCL 1 MG CAP PO SCH (21:00)
[2023-05-02] MEDS ORDERED: traZODone HCL 50 MG TAB PO SCH (21:00)
[2023-05-02] MEDS ORDERED: CETIRIZINE HCL 10 MG TABLET PO SCH (21:00)
== END 2023-05-02 17:04 | DRG 918 ==
LOC: ED 22:50 → EDINP 05-02 02:23 → INTOOBSV 05-02 02:23 → 2S 05-02 07:25